=== PATIENT | male | born 1985 | race Caucasian/White ===

== ENCOUNTER 2022-09-14 09:46 | Emergency (ER) | payer OTHER ==
[~2022-09-14] VITALS: Ht 177.8 cm; Wt 71.7 kg
[2022-09-14] MEDS ORDERED: Bactrim Ds Tab1 EACH PO (12:00)
[2022-09-14] MEDS ORDERED: ALBU90OI INH (12:00)
== END 2022-09-14 12:10 | disposition home or self-care (01) ==
LOC: ER 09:46
DX: S61.211A Laceration without foreign body of left index finger without damage to nail, initial encounter (principal); L02.31 Cutaneous abscess of buttock; R06.2 Wheezing; W26.0XXA Contact with knife, initial encounter; F17.200 Nicotine dependence, unspecified, uncomplicated
CPT/HCPCS: 10061; 64450; 99282-25; A9270

== ENCOUNTER 2022-10-16 12:39 | Emergency (ER) | payer OTHER ==
[~2022-10-16] VITALS: Ht 177.8 cm; Wt 71.7 kg
[~2022-10-16 12:39] MED LIST: ALBU90OI INH; Bactrim Ds Tab1 EACH PO
[2022-10-16] MEDS ORDERED: SULTRIDS PO (15:30)
[2022-10-16] MEDS ORDERED: CYCL10 PO (15:30)
== END 2022-10-16 15:37 | disposition home or self-care (01) ==
LOC: ER 12:39
DX: M54.50 Low back pain, unspecified (principal); M25.552 Pain in left hip; V19.88XA Pedal cyclist (driver) (passenger) injured in other specified transport accidents, initial encounter; L03.113 Cellulitis of right upper limb; F17.200 Nicotine dependence, unspecified, uncomplicated
CPT/HCPCS: 72100; 73502; A9270